=== PATIENT | female | born 1975 | race Asian ===

== ENCOUNTER → 2017-09-21 | Outpatient (CLI) | payer OTHER ==
[~2017-09-21] MED LIST: MULT-506 PO
== END | disposition home or self-care (01) ==
LOC: C.PAPS 09:38
PROVIDERS: ATTEND Obstetrics & Gynecology
DX: Z12.4 Encounter for screening for malignant neoplasm of cervix (principal); Z11.51 Encounter for screening for human papillomavirus (HPV)

== ENCOUNTER → 2018-01-03 | Outpatient (CLI) | payer OTHER ==
--- NOTE | 2018-01-03 08:02 | DIAGNOSTIC IMAGING REPORT ---
SOFT TISS HEAD/NECK-THYROID CLINICAL HISTORY: 42 years-old Female presenting with BENIGN NEOPLASM OF THYROID GLAND. TECHNIQUE: Real-time grayscale and color Doppler ultrasound imaging of the thyroid and base of the neck was performed. COMPARISON: None. FINDINGS: Right lobe: Normal echogenicity and echotexture. The right lobe of the thyroid measures 5.4 x 2.0 x 2.1 cm. No parenchymal hyperemia. Index nodule(s) enumerated below: 1. Complex partially cystic, partially well-defined solid nodule in the interpolar region measuring 2.6 x 1.8 x 2.1 cm (very low suspicion pattern). 2. Primarily cystic 4 x 2 x 3 mm nodule in the anterior interpolar region with a hyperechogenic focus likely colloid (very low suspicion pattern). Left lobe: Normal echogenicity and echotexture. The left lobe of the thyroid measures 5.0 x 1.0 x 1.4 cm. No parenchymal hyperemia. No nodules. Isthmus: The isthmus measures 2 mm in thickness. No parenchymal hyperemia. No nodules. IMPRESSION: Spongiform very low suspicion pattern nodule in the right thyroid lobe. Otherwise normal exam. Electronically signed by: Casa Casarez M.D. 01/03/2018 8:01 AM Dictated Date/Time: 01/03/2018 7:57 AM
== END | disposition home or self-care (01) ==
LOC: C.ULTR 07:31
PROVIDERS: ATTEND Otolaryngology
DX: D34 Benign neoplasm of thyroid gland (principal)

== ENCOUNTER → 2018-01-09 | Outpatient (CLI) | payer OTHER ==
--- NOTE | 2018-01-09 10:39 | DIAGNOSTIC IMAGING REPORT ---
ULTRASOUND-GUIDED FINE-NEEDLE ASPIRATION OF A RIGHT THYROID NODULE HISTORY: Right thyroid nodule. NEOPLASM OF THYROID GLAND COMPARISON: Thyroid ultrasound 01/03/2018. PROCEDURE: Written informed consent was obtained. The neck was prepped and draped in the usual sterile fashion. 1% lidocaine was used for local anesthesia. A total of 2 passes using a 25-gauge needle were made through the dominant right thyroid nodule under ultrasound guidance. Specimens were given to the on-site pathologist who determined adequate tissue for diagnosis. The patient tolerated the procedure well. There were no immediate locations. IMPRESSION: Successful ultrasound-guided fine-needle aspiration of a right thyroid nodule. Electronically signed by: Unruly Nash M.D. 01/09/2018 10:38 AM Dictated Date/Time: 01/09/2018 10:37 AM
== END | disposition home or self-care (01) ==
LOC: C.ULTR 09:41
PROVIDERS: ATTEND Otolaryngology
DX: Z01.89 Encounter for other specified special examinations (principal)

== ENCOUNTER → 2018-04-24 | Outpatient (CLI) | payer OTHER ==
--- NOTE | 2018-04-25 07:00 | MAMMOGRAPHY REPORT ---
BILATERAL FIRST EVER DIGITAL SCREENING MAMMOGRAM TOMOSYNTHESIS WITH CAD: 04/24/2018 CLINICAL HISTORY: Baseline examination. Patient reported intermittent nonfocal right breast pain over the past 2-3 weeks. TECHNIQUE: The study was acquired using full field digital technology and interpreted from soft copy. Breast tomosynthesis in addition to standard 2D mammography was performed. Current study was also ev aluated with a Computer Aided Detection (CAD) system. COMPARISON: No prior exams were available for comparison. BREAST COMPOSITION: The tissue of both breasts is heterogeneously dense, which may obscure small mass es. FINDINGS: There is a dominant cluster of punctate calcifications in the 12:00/central right breast fo r which additional spot magnification views are recommended. No other suspicious mass, architectural distortion or cluster of microcalcifications is seen. IMPRESSION: ACR BI-RADS CATEGORY 0: INCOMPLETE EVALUATION: NEED ADDITIONAL IMAGING EVALUATION 1. The dominant cluster of calcifications in the 12:00/central right breast need additional imaging evaluation. 2. At time of diagnostic workup in the right breast, consider additional targeted right breast ultra sound for the reported intermittent right mastalgia, which the patient reported to our mammography te chnologist during the screening appointment. 3. No mammographic evidence of malignancy in the left breast. The patient will be called to schedule an appointment. Some breast cancers are not detected with mammography. A negative mammographic report should not mino y biopsy if a clinically suggestive mass is present. Adrianna Ulloa M.D. ay/:04/24/2018 14:07:47 Rv Body Mechanic: RT Hyun(Ahmet)(Adolfo), [facility] letter sent: Addl Imaging 0 BI-RADS Code: ACR BI-RADS Category 0: Incomplete Evaluation: Need Additional Imaging Evaluation
== END | disposition home or self-care (01) ==
LOC: C.MAMM 09:50
PROVIDERS: ATTEND Obstetrics & Gynecology
DX: Z12.31 Encounter for screening mammogram for malignant neoplasm of breast (principal); R92.1 Mammographic calcification found on diagnostic imaging of breast